=== PATIENT | female | born 1990 | race Caucasian/White ===

== ENCOUNTER 2019-04-18 10:48 | Emergency (ER) | payer MEDICAID ==
--- NOTE | 2019-04-18 11:43 | ED Physician Chart ---
ED Chief Complaint/HPI - Patient Information Date Seen:: 04/18/19 Time Seen:: 11:35 Chief Complaint:: Left pink eye for 2 weeks. History of Present Illness:: Pt is primarily Gabonese speaking. Interpretation is provided by hospital staff member Ms. Reyna Miramontes. Pt came in by private auto because of left eye discomfort for about 2 weeks. Pt has been treated by her physician and is pending follow-up at an Eye Clinic. ? eye discharge. No fever. No N/V. No visual changes in terms of blurry vision or diplopia. Pt has noticed swelling in both left upper and lower eyelids in her left eye. Pt currently does not use any medication for her L eye. Allergies:: Allergies Allergy/AdvReac Type Severity Reaction Status Date / Time No Known Allergies Allergy Verified 04/18/19 11:11 Vitals:: Vital Signs - 8 hr 04/18/19 11:11 Temp 98.2 F HR 65 RR 17 BP 115/71 O2 Sat % 96 Historian:: Patient Family MD/PCP:: [facility] Mireles at [facility] LMP:: 04/11/2019 Review:: Nurse's Note Reviewed ED Review of Systems - Review of Systems General/Constitutional: No fever, No weight loss, No loss of appetite Skin: No rash, No bruising Head: No headache, No light-headedness Eyes: No loss of vision, No diplopia ENT: No earache, No nasal drainage, No sore throat Neck: No neck pain, No swelling, No mass noted Cardio Vascular: No chest pain Pulmonary: No SOB, No cough, No wheezing GI: No nausea, No vomiting, No pain G/U: No dysuria, No frequency, No hematuria Director Of Revenue Cycle Management: No vaginal discharge, No abnormal vaginal bleed Musculoskeletal: No bone or joint pain Psychiatric: No prior psych history Hematopoietic: No bruising, No lymphadenopathy Allergic/Immuno: No urticaria, No angioedema Neurological: No focal symptoms, No weakness, No paresthesia, No headache, No confusion ED Past Medical History - Past Medical History Past Medical History: No significant medical hx Family History: None Social History: Non Smoker, No Alcohol, No Drug Use, , Employed, Other ( Lives with her .) 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 Surgical History: (x 3 with last one in 2015.) Psychiatricy History: None Medication: Reviewed Family Medical History - Family Member Mother History Unknown: Yes ED Physical Exam - Physical Examination General/Constitutional: Awake, Well-developed, well-nourished (female), Alert, No distress, Non-toxic appearing, Ambulatory Other Gen/Cons comments:: Breathes comfortably, speaks clearly, and interacts appropriately. Head: Atraumatic Eyes: PERRL, EOMI Other Eyes comments:: R eye is normal. L eye shows mild hyperemia in both bulbar and palpebral conjunctiva with minimal swelling in lower eyelid. Trace light yellow exudate noticed. Florescein dye exam: No increase uptake. Slit lamp exam: anterior and posterior chambers are clear. Skin: Well hydrated, No lymphadenopathy ENMT: External ears, nose nl, Nasal exam nl, Oropharynx nl Neck: Nontender, Full ROM w/o pain, No nuchal rigidity, No mass Respiratory: Nl effort/Exclusion, Clear to Auscultation, No Wheeze/Rhonchi/Rales Cardio Vascular: RRR, No murmur, gallop, rubs Neuro/Psych: Alert/oriented (oriented x 3), No focal deficits ED Septic Shock - . Is Septic Shock (SBP<90, OR Lactate>4 mmol\L) present?: No - <6hrs of presentation: Vital Signs: Vital Signs - 8 hr 04/18/19 11:11 Temp 98.2 F HR 65 RR 17 BP 115/71 O2 Sat % 96 ED Reassessment (Disposition) - Reassessment Reassessment:: 1315 Pt feels much better. No eye pain or discomfort. No eyelid swelling or hyperemia. Pt requests to go home now. Aftercare instructions have been given. Interpretation is provided by my nurse Jett. Reassessment Condition:: Improved - Diagnosis Diagnosis:: Probable allergic conjunctivitis with superimposed mild left eye bacterial conjunctivitis. - Aftercare/Follow up Instructions Aftercare/Follow-Up Instructions:: Refer to Discharge Instructions Notes:: Bed rest for today. Avoid eye rubbing. Eye hygiene instructions given. F/U with PCP Dr. Mireles in one day for recheck. Return to ER immediately if condition worsens or if any further questions/problems. F/U with Dr. Montes (ophthalmogist) or Eye Clinic as referred by your PCP in one day. Medication Prescribed:: Erythromycin ophthalmic ointment Applied topically to left eye q8h as directed. D-one tube R-0 - Patient Disposition Discharge/Transfer:: Home Time:: 13:30 Condition at Disposition:: Stable, Improved
[2019-04-18] MEDS ORDERED: Fluorescein Sodium 1 mg Ophth Strip ONE (12:16)
[2019-04-18] MEDS ORDERED: Dacriose Ophth Soln 120 mL Bottle ONE (12:16)
[2019-04-18] MEDS ORDERED: TETRACAINE HCL 0.5% OPHTH SOLN 4ML BOTTLE ONE (12:17)
[2019-04-18] MEDS ORDERED: Dacriose Ophth Soln 120 mL Bottle LEFT EYE ONE (13:11)
[2019-04-18] MEDS ORDERED: Fluorescein Sodium 1 mg Ophth Strip LEFT EYE ONE (13:12)
[2019-04-18] MEDS ORDERED: Tetracaine 0.5% Ophth Soln 15 mL Soln LEFT EYE ONE (13:12)
== END 2019-04-18 13:42 | disposition home or self-care (01) ==
LOC: ER 10:48
DX: H10.022 Other mucopurulent conjunctivitis, left eye (principal); Z98.890 Other specified postprocedural states
CPT/HCPCS: 99283; 96372; J1885; Z7502